=== PATIENT | male | born 1965 | race Caucasian/White ===

== ENCOUNTER 2019-04-09 07:04 | Day surgery (SDC) | payer BC ==
[2019-04-07 10:23] LABS: BASOPHILS % (AUTO) 0.5 % (0-1); EOSINOPHILS # (AUTO) 0.1 X10'3 (0-0.9); EOSINOPHILS % (AUTO) 0.8 % (0-6); LYMPHOCYTES # (AUTO) 2.6 X10'3 (1.1-4.8); LYMPHOCYTES % (AUTO) 25.8 % (21-51); MEAN CORPUSCULAR HEMOGLOBIN 29.8 PG (27.0-31.0); MEAN CORPUSCULAR HGB CONC 33.7 g/dL (33.0-36.5); MEAN CORPUSCULAR VOLUME 88.4 FL (78-98); MEAN PLATELET VOLUME 8.5 FL (7.4-10.4); MONOCYTES # (AUTO) 0.8 X10'3 (0-0.9); MONOCYTES % (AUTO) 7.9 % (2-12); NEUTROPHILS # (AUTO) 6.6 X10'3 (1.8-7.7); PRE OP HEMATOCRIT 45.8 % (42.0-52.0); PRE OP HEMOGLOBIN 15.5 g/dL (14.0-17.9); PRE OP PLATELET COUNT 305 X10'3 (140-440); RED BLOOD COUNT 5.18 X10'6 (4.70-6.10); RED CELL DISTRIBUTION WIDTH 14.5 % (11.5-14.5)
[2019-04-07 10:26] LABS: CLARITY,URINE CLEAR (Clear); COLOR,URINE YELLOW (Yellow); GLUCOSE, URINE NEGATIVE (Neg); KETONES,URINE NEGATIVE (Neg); LEUKOCYTE ESTERASE ,URINE NEGATIVE (Neg); NITRITES, URINE NEGATIVE (Neg); OCCULT BLOOD,URINE NEGATIVE (Neg); PH,URINE 6.5 (4.8-8.0); PROTEIN,URINE NEGATIVE (Neg); UROBILINOGEN,URINE 0.2 E.U/dL (0.2-1.0)
[2019-04-07 10:27] LABS: UA COLLECTION TYPE VOIDED
[2019-04-07 10:38] LABS: ALBUMIN 4.5 G/DL (3.4-5.0); ALBUMIN/GLOBULIN RATIO 1.4 (1.1-1.5); ALKALINE PHOSPHATASE 36 IU/L (46-116); BLOOD UREA NITROGEN 18 MG/DL (7-18); BUN/CREATININE RATIO 21.2 (5.4-32.0); CALCIUM 9.3 MG/DL (8.5-10.1); CHLORIDE 103 MMOL/L (99-107); CREATININE 0.85 MG/DL (0.60-1.10); PRE OP ALT 34 U/L (30-65); PRE OP ANION GAP 10 (8-16); PRE OP AST 17 U/L (10-37); PRE OP BILIRUB, TOTAL 0.5 MG/DL (0.0-1.0); PRE OP GLUCOSE 95 MG/DL (70-104); PRE OP POTASSIUM 4.2 MMOL/L (3.4-5.1); PRE OP SODIUM 140 MMOL/L (135-145); TOTAL CARBON DIOXIDE 27.2 MMOL/L (24-32); TOTAL PROTEIN 7.7 G/DL (6.4-8.2); eGFR > 90 ML/MIN
[2019-04-09] VITALS (11 sets, daily range): BP systolic 123–165; BP diastolic 69–96
[~2019-04-09] VITALS: Ht 177.8 cm; Wt 150.0 kg
[~2019-04-09 07:04] MED LIST: ACET-2971 PO; ATOR20TA66 PO; HYDR-4353 PO; LISI10TA4 PO; METH-360 PO; famotidine 20mg tablet PO ONE; ringers solution, lacted 1,000 ML IV SCH
[2019-04-09] MEDS ORDERED: LIDOcaine 1% (10mg/ml) 2ml vial ONE (07:58)
[2019-04-09] MEDS ORDERED: ringers solution, lacted 1,000 ML IV SCH (08:11)
[2019-04-09] MEDS ORDERED: labetalol 20mg/4ml (5mg/ml) syringe IV PRN (08:15)
[2019-04-09] MEDS ORDERED: ondansetron/PF 4mg/2ml inj IV PRN (08:15)
[2019-04-09] MEDS ORDERED: hydrALAZINE 20mg/ml inj. IV PRN (08:15)
[2019-04-09] MEDS ORDERED: morphine 4 MG/ML inj SYRINge IV PRN (08:15)
[2019-04-09] MEDS ORDERED: fentaNYL/PF 50MCG/1 ML 2ML syringe IV PRN ×2 (08:15)
[2019-04-09] MEDS: ceFAZolin 1GM/D5W- ADD-VANTAGE 50 ML IV ONE ×2 (08:27→09:38)
[2019-04-09] MEDS: cefazolin/dext.iso 2gm/50ml 50 ML IV ONE ×2 (08:28→09:38)
[2019-04-09] MEDS ORDERED: CLINDAMYCIN/D5W 900mg/50ml 50 ML IV ONE (09:50)
[2019-04-09] MEDS ORDERED: sevoflurane 250ml liquid IH ONE (11:10)
[2019-04-09] MEDS ORDERED: fentaNYL/PF 50MCG/1 ML 2ML syringe ONE (11:15)
[2019-04-09] MEDS ORDERED: propofol inj 20 ML IV ONE ×2 (11:20)
[2019-04-09] MEDS ORDERED: dexamethasone sod phosphate 4mg/ml inj. ONE (11:20)
[2019-04-09] MEDS ORDERED: ondansetron/PF 4mg/2ml inj ONE (11:22)
[2019-04-09] MEDS ORDERED: ROPIVAcaine 0.5% (5mg/ml) 30ml vial ONE (12:15)
--- NOTE | 2019-04-09 12:26 | NUR ---
Received from OR via [facility], accompanied by Anesthesiologist DR LIZAMA and report given by Anesthesiologist. PT DROWSY, VSS, DENIES PAIN, RIGHT UPPER CHEST W/SMALL ISLAND DRSG COVERING INCISION CDI. Addendum: 04/09/19 at 1300 by Sherita Morrison RN Amended: Links added.
[2019-04-09] MEDS ORDERED: ROPIVAcaine 0.5% (5mg/ml) 30ml vial IJ ONE (12:31)
[2019-04-09] MEDS: morphine 4 MG/ML inj SYRINge IV PRN ×2 (12:47→13:01)
[2019-04-09] MEDS ORDERED: HYDROcodone/acetaminophen 10/325mg tab PO ONE (13:20)
--- NOTE | 2019-04-09 13:56 | NUR ---
D/C INSTRUCTIONS GIVEN AND GONE OVER W/PT AND PTS BOTH VERBALIZE UNDERSTANDING, PT D/CD TO HOME VIA W/C TO PRIVATE VEHICLE W/O INCIDENT. Addendum: 04/09/19 at 1458 by Sherita Morirson RN Amended: Links added.
== END 2019-04-09 13:56 | disposition home or self-care (01) ==
LOC: PAS 07:04
PROVIDERS: ATTEND Surgery
DX: L72.3 Sebaceous cyst (principal); I10 Essential (primary) hypertension; E66.01 Morbid (severe) obesity due to excess calories; Z79.891 Long term (current) use of opiate analgesic; Z79.899 Other long term (current) drug therapy; Z87.442 Personal history of urinary calculi; Z87.891 Personal history of nicotine dependence; Z88.0 Allergy status to penicillin
CPT/HCPCS: 11406; 12034; 36415; 80053; 81003; 82948; 85025; 93005; J1100; J2001; J2270; J2405; J2704; J3010; J7120; A4618; A7000; J0690; J2795; J3490

== ENCOUNTER 2023-05-15 12:58 | Emergency (ER) | payer BC, OTHER ==
[~2023-05-15] VITALS: Ht 180.3 cm; Wt 141.7 kg
[~2023-05-15 12:58] MED LIST changes: +LISI10TA27 PO; -LISI10TA4 PO; -famotidine 20mg tablet PO ONE; -ringers solution, lacted 1,000 ML IV SCH
[2023-05-15 13:19] VITALS: BP 171/90; PULSE 111; TEMP 97; O2SAT 98
[2023-05-15] MEDS ORDERED: diazepam inj 5 MG/ML inj. IM ONE (13:25)
[2023-05-15] MEDS ORDERED: ketorolac trometh inj. 60 MG/2 ML VIAL IM ONE (13:25)
[2023-05-15] MEDS ORDERED: ketorolac trometh. 30mg/ml inj. IM ONE (13:25)
[2023-05-15] MEDS ORDERED: CYCL-1 PO (13:27)
[2023-05-15] MEDS ORDERED: PRED20TA PO (13:27)
[2023-05-15 13:39] VITALS: RESP 18
== END 2023-05-15 14:07 | disposition home or self-care (01) ==
LOC: ER 12:58
DX: S39.012A Strain of muscle, fascia and tendon of lower back, initial encounter (principal); M54.42 Lumbago with sciatica, left side; F12.90 Cannabis use, unspecified, uncomplicated; Z79.899 Other long term (current) drug therapy; Z88.0 Allergy status to penicillin; X58.XXXA Exposure to other specified factors, initial encounter; Y93.89 Activity, other specified; Y92.89 Other specified places as the place of occurrence of the external cause; Y99.8 Other external cause status
CPT/HCPCS: 96372; 99284; J1885; J3360

== ENCOUNTER 2023-06-05 16:01 | Emergency (ER) | payer SELFPAY ==
[~2023-06-05] VITALS: Ht 182.9 cm; Wt 139.1 kg
[~2023-06-05 16:01] MED LIST changes: +CYCL-1 PO; +PRED20TA PO
[2023-06-05] MEDS ORDERED: ketorolac trometh inj. 60 MG/2 ML VIAL IM ONE (16:45)
[2023-06-05] MEDS ORDERED: diazepam inj 5 MG/ML inj. IM ONE (16:45)
[2023-06-05] MEDS ORDERED: CYCL-1 PO (16:49)
[2023-06-05] MEDS ORDERED: PRED20TA PO (16:49)
[2023-06-05 16:58] VITALS: BP 134/78; PULSE 88; RESP 18; TEMP 98; O2SAT 98
== END 2023-06-05 17:46 | disposition home or self-care (01) ==
LOC: ER 16:02
DX: S39.012A Strain of muscle, fascia and tendon of lower back, initial encounter (principal); M54.42 Lumbago with sciatica, left side; F12.90 Cannabis use, unspecified, uncomplicated; Z88.8 Allergy status to other drugs, medicaments and biological substances; Z79.899 Other long term (current) drug therapy; X58.XXXA Exposure to other specified factors, initial encounter; Y93.89 Activity, other specified; Y92.89 Other specified places as the place of occurrence of the external cause; Y99.8 Other external cause status
CPT/HCPCS: 96372; 99284; J1885; J3360